=== PATIENT | male | born 1975 | race Caucasian/White ===

== ENCOUNTER 2019-08-01 16:45 | Inpatient (IN) | payer OTHER ==
[2019-08-01 19:00] VITALS: BMI 32.1
--- NOTE | 2019-08-01 20:41 | HP ---
COWS - Scale Resting Pulse: 1= [place] 81-100 Sweatin=Flushed/Facial Moisture Restless Observation: 1= Difficult to Sit Still Pupil Size: 1= Pupils >than Normal Bone or Joint Aches: 2= Severe Diffuse Aches Runny Nose/ Eye Tearin= Nasal Congestion GI Upset > 30mins: 2= Nausea/Diarrhea Tremor Observation: 1= Tremor [place], Not Seen Yawning Observation: 1= 1-2x During Session Anxiety or Irritability: 1=Feels Anxious/Irritable Goose Flesh Skin: 3=Piloerection COWS Score: 16 CIWA Score Nausea/Vomitin Muscle Tremors: 2 Anxiety: 2 Agitation: 1-Slight > Activity Paroxysmal Sweats: 1-Minimal Palms Moist Orientation: 0-Oriented Tacttile Disturbances: 2-Mild Itch/Numbness/Burn Auditory Disturbances: 1-Very Mild Visual Disturbances: 1-Very Mild Sensitivity Headache: 2-Mild CIWA-Ar Total Score: 14 - Admission Criteria OASAS Guidelines: Admission for Medically Managed Detox: Requires at least one of the followin. CIWA greater than 12 2. Seizures within the past 24 hours 3. Delirium tremens within the past 24 hours 4. Hallucinations within the past 24 hours 5. Acute intervention needed for co occurring medical disorder 6. Acute intervention needed for co occurring psychiatric disorder 7. Severe withdrawal that cannot be handled at a lower level of care (continued vomiting, continued diarrhea, abnormal vital signs) requiring intravenous medication and/or fluids 8. Admission [facility] Chief Complaint: Withdrawal symptoms Allergies/Adverse Reactions: Allergies Allergy/AdvReac Type Severity Reaction Status Date / Time No Known Allergies Allergy Verified 08/01/19 18:53 History of Present Illness: 44 y.o. man with extensive history of heroin and Xanax dependence is here for detox admission. He reports he completed detox at [facility] and states he was treated with Suboxone Exam Limitations: No Limitations - Ebola screening Have you traveled outside of the country in the last 21 days: No (N) Have you had contact with anyone from an Ebola affected area: No Do you have a fever: No - Review of Systems Constitutional: Chills, Diaphoresis, Loss of Appetite, Night Sweats, Unintentional Wgt. Loss EENT: reports: Tearing, Nose Congestion Respiratory: reports: Cough, Shortness of Breath Cardiac: reports: No Symptoms Reported GI: reports: Nausea, Vomiting : reports: No Symptoms Reported Musculoskeletal: reports: Back Pain, Joint Pain, Muscle Weakness Integumentary: reports: No Symptoms Reported Neuro: reports: Headache, Tremors Endocrine: reports: No Symptoms Reported Hematology: reports: No Symptoms Reported Psychiatric: reports: Anxious, Depressed Other Systems: Reviewed and Negative Patient History - Patient Medical History Hx Anemia: No Hx Asthma: No Hx Chronic Obstructive Pulmonary Disease (COPD): No Hx Cancer: No Hx Cardiac Disorders: No Hx Congestive Heart Failure: No Hx Hypertension: No Hx Hypercholesterolemia: No Hx Pacemaker: No HX Cerebrovascular Accident: No Hx Seizures: No Hx Dementia: No Hx Diabetes: No Hx Gastrointestinal Disorders: Yes (GERD ) Hx Liver Disease: No Hx Genitourinary Disorders: No Hx Sexually Transmitted Disorders: No Hx Renal Disease (ESRD): No Hx Thyroid Disease: No Hx Human Immunodeficiency Virus (HIV): No Hx Hepatitis C: No Hx Depression: Yes Hx Suicide Attempt: No Hx Bipolar Disorder: No Hx Schizophrenia: No - Patient Surgical History Past Surgical History: Yes Hx Orthopedic Surgery: Yes (Right foot fx repapir ) Anesthesia Reaction: Yes - PPD History Previous Implant?: Yes Documented Results: Negative w/o proof PPD to be Administered?: Yes - Reproductive History Patient is a Female of Child Bearing Age (11 -55 yrs old): No - Smoking Cessation Smoking history: Current every day smoker Have you smoked in the past 12 months: Yes Aproximately how many cigarettes per day: 10 Initiated information on smoking cessation: Yes 'Breaking Loose' booklet given: 08/01/19 - Substance & Tx. History Hx Alcohol Use: No Hx Substance Use: Yes Substance Use Type: Heroin, Tranquilizers Hx Substance Use Treatment: Yes (Detox "a few years ago". ) - Substances abused Alcohol Substance route: Oral Frequency: Daily Amount used: 1pint of whisky,(3)24oz of beer Age of first use: 17 Date of last use: 07/31/19 Heroin Substance route: Inhalation Frequency: Daily Amount used: 50-70bags/day Age of first use: 28 Date of last use: 07/31/19 Alprazolam (Xanax) Substance route: Oral Frequency: 3-6 times per week Amount used: 1gram Age of first use: 27 Date of last use: 07/31/19 Family Disease History - Family Disease History Family Disease History: Diabetes: Mother, Other: Father (Alcohol abuse ) Admission Physical Exam [facility] - Vital Signs Vital Signs: Vital Signs - 24 hr 08/01/19 18:54 Temperature 98.0 F Pulse Rate 88 Respiratory 18 Rate Blood Pressure 159/102 H - Physical General Appearance: Yes: Tremorous, Irritable, Sweating, Anxious HEENTM: Yes: Hearing grossly Normal, Normocephalic, Normal Voice Respiratory: Yes: Lungs Clear, Normal Breath Sounds, No Respiratory Distress, No Accessory Muscle Use Breast: Yes: Breast Exam Deferred Cardiology: Yes: Regular Rhythm, Regular Rate Abdominal: Yes: Non Tender, Flat Genitourinary: Yes: Within Normal Limits (No complaints reported) Back: Yes: Normal Inspection Musculoskeletal: Yes: full range of Motion, Gait Steady, Pelvis Stable Extremities: Yes: Normal Inspection, Normal Range of Motion, Non-Tender Neurological: Yes: Alert, Normal Mood/Affect, Normal Response Integumentary: Yes: Normal Color, Dry, Warm Lymphatic: Yes: Within Normal Limits - Diagnostic (1) Uncomplicated opioid dependence Current Visit: Yes Status: Acute (2) Xanax use disorder, moderate, dependence Current Visit: Yes Status: Acute (3) Alcohol dependence with uncomplicated intoxication Current Visit: Yes Status: Acute (4) Nicotine dependence Current Visit: Yes Status: Acute (5) GERD (gastroesophageal reflux disease) Current Visit: Yes Status: Acute Cleared for Admission [facility] - Detox or Rehab [facility] Level of Care: Medically Managed Detox Regimen/Protocol: Methadone/Valium Breathalyzer - Breathalyzer Breathalyzer: 0 Urine Drug Screen - Test Device Lot number: [id number] Expiration date: 04/15/21 - Control Is test valid?: Yes - Results Drug screen NEGATIVE: No Urine drug screen results: FEN-Fentanyl, MOP-Opiates Inpatient Rehab Admission - Rehab Decision to Admit Inpatient rehab admission?: No
[2019-08-01] MEDS ORDERED: ONDANSETRON *ODT* 4 MG TABLET SL PRN (20:56)
[2019-08-01] MEDS ORDERED: diazePAM 5 MG TABLET PO ONE (20:56)
[2019-08-01] MEDS ORDERED: MAGNESIUM CITRATE 300 ML BOTTLE PO PRN (20:56)
[2019-08-01] MEDS ORDERED: NICOTINE POLACRILEX 2 MG GUM BUC PRN (20:56)
[2019-08-01] MEDS ORDERED: ACETAMINOPHEN 325 MG TABLET (FP) PO PRN ×2 (20:56)
[2019-08-01] MEDS ORDERED: MENTHOL/PHENOL 1 EACH UD MM PRN (20:56)
[2019-08-01] MEDS ORDERED: MAGNESIUM HYDROX 2400MG/30ML ORAL SUSPENSION 30 ML CUP PO PRN (20:56)
[2019-08-01] MEDS ORDERED: METHADONE HCL 10 MG TABLET (FOR DETOX USE ONLY) PO ONE (20:56)
[2019-08-01] MEDS ORDERED: BISMUTH SUBSALICYLATE 524 MG/30 ML UD PO PRN (20:56)
[2019-08-01] MEDS ORDERED: IBUPROFEN 400 MG TABLET (FP) PO PRN (20:56)
[2019-08-01] MEDS ORDERED: MAG HYDROX/AL HYDROX/SIMETH 30 ML UNIT-DOSE CUP PO PRN (20:56)
[2019-08-01] MEDS: MELATONIN 5 MG TABLETS PO PRN (22:11)
[2019-08-01] MEDS: THIAMINE HCL 100 MG TABLET (FP) PO SCH (22:11)
[2019-08-01] MEDS: METHOCARBAMOL 500 MG TABLET PO PRN (22:11)
[2019-08-01] MEDS: cloNIDine HCL 0.1 MG TABLET PO PRN (22:14)
[2019-08-01] MEDS: diazePAM 5 MG TABLET PO SCH (22:21)
[2019-08-02] MEDS: IBUPROFEN 400 MG TABLET (FP) PO PRN ×2 (06:00→06:30)
[2019-08-02] MEDS: diazePAM 5 MG TABLET PO SCH ×3 (06:28→22:00)
[2019-08-02] MEDS ORDERED: METHADONE HCL 10 MG TABLET (FOR DETOX USE ONLY) ONE (08:09)
[2019-08-02] MEDS ORDERED: METHADONE HCL 5 MG TABLET (FOR DETOX USE ONLY) ONE (08:10)
[2019-08-02 09:56] LABS: HEMATOCRIT 39.6 % (35.4-49); HEMOGLOBIN 13.5 GM/dL (11.7-16.9); MCHC 34.2 g/dl (32.0-35.9); MEAN CELL VOLUME 87.7 fl (80-96); MEAN PLT VOLUME 7.7 fl (7.5-11.1); PLATELET COUNT 236 K/MM3 (134-434); RBC 4.52 M/mm3 (4.00-5.60); RDW 13.9 % (11.9-15.9); WHITE BLOOD COUNT 7.1 K/mm3 (4.0-10.0)
[2019-08-02] MEDS ORDERED: METHADONE (DETOX) 20 MG, METHADONE (DETOX) 5 MG PO ONE (10:00)
--- NOTE | 2019-08-02 10:12 | EKG ---
Test Reason : Blood Pressure : / mmHG Vent. Rate : 080 BPM Atrial Rate : 080 BPM P-R Int : 154 ms QRS Dur : 092 ms QT Int : 374 ms P-R-T Axes : 042 041 031 degrees QTc Int : 431 ms NORMAL SINUS RHYTHM NORMAL ECG NO PREVIOUS ECGS AVAILABLE Confirmed by MD Gamal, Samuel ([id number]) on 08/02/2019 10:12:28 AM Referred By: Confirmed By:Samuel Yeung MD
[2019-08-02 10:14] LABS: BLOOD UREA NITROGEN 11.8 mg/dL (7-18); CALCIUM 9.4 mg/dL (8.5-10.1); CREATININE 1.1 mg/dL (0.55-1.3); POTASSIUM 3.4 mmol/L (3.5-5.1); TOT PROT 7.2 g/dl (6.4-8.2)
[2019-08-02] MEDS: PRENATAL VITAMINS W/ FOLIC ACID TABLET (FP) PO SCH (10:35)
[2019-08-02] MEDS: NICOTINE 14 MG/24 HOURS TOPICAL PATCH TD SCH (10:35)
[2019-08-02] MEDS: RANITIDINE HCL 150 MG TABLET (FP) PO SCH (10:35)
[2019-08-02] MEDS: cloNIDine HCL 0.1 MG TABLET PO PRN (10:41)
[2019-08-02] MEDS: diazePAM 5 MG TABLET PO PRN (10:41)
[2019-08-02] MEDS: METHOCARBAMOL 500 MG TABLET PO PRN ×2 (10:42→22:01)
--- NOTE | 2019-08-02 11:21 | PN ---
S CIWA - CIWA Score Nausea/Vomitin Muscle Tremors: 2 Anxiety: 2 Agitation: 2 Paroxysmal Sweats: 1-Minimal Palms Moist Orientation: 0-Oriented Tacttile Disturbances: 1-Very Mild Itch/Numbness Auditory Disturbances: 0-None Visual Disturbances: 0-None Headache: 2-Mild CIWA-Ar Total Score: 12 BHS COWS - Scale Resting Pulse: 0= [place] 80 or Below Sweatin= No chills or Flushing Restless Observation: 1= Difficult to Sit Still Pupil Size: 1= Pupils >than Normal Bone or Joint Aches: 2= Severe Diffuse Aches Runny Nose/ Eye Tearin= Runny Nose/Eyes GI Upset > 30mins: 1= Stomach Cramp Tremor Observation of Outstretched Hands: 2= Slight Tremor Visible Yawning Observation: 1= 1-2x During Session Anxiety or Irritability: 2=Irritable/Anxious Goose Flesh Skin: 0=Smooth Skin COWS Score: 12 S Progress Note (SOAP) Subjective: alert,irritable,anxious,tremor,pain in the body and back Objective: 08/02/19 11:18 Vital Signs Temperature 97.8 F 08/02/19 09:16 Pulse Rate 67 08/02/19 09:16 Respiratory Rate 18 08/02/19 09:16 Blood Pressure 119/75 08/02/19 09:16 O2 Sat by Pulse Oximetry (%) Laboratory Last Values WBC 7.1 K/mm3 (4.0-10.0) 08/02/19 08:00 RBC 4.52 M/mm3 (4.00-5.60) 08/02/19 08:00 Hgb 13.5 GM/dL (11.7-16.9) 08/02/19 08:00 Hct 39.6 % (35.4-49) 08/02/19 08:00 MCV 87.7 fl (80-96) 08/02/19 08:00 MCH 30.0 pg (25.7-33.7) 08/02/19 08:00 MCHC 34.2 g/dl (32.0-35.9) 08/02/19 08:00 RDW 13.9 % (11.9-15.9) 08/02/19 08:00 Plt Count 236 K/MM3 (134-434) 08/02/19 08:00 MPV 7.7 fl (7.5-11.1) 08/02/19 08:00 Sodium 140 mmol/L (136-145) 08/02/19 08:00 Potassium 3.4 mmol/L (3.5-5.1) L 08/02/19 08:00 Chloride 104 mmol/L (98-107) 08/02/19 08:00 Carbon Dioxide 28 mmol/L (21-32) 08/02/19 08:00 Anion Gap 8 MMOL/L (8-16) 08/02/19 08:00 BUN 11.8 mg/dL (7-18) 08/02/19 08:00 Creatinine 1.1 mg/dL (0.55-1.3) 08/02/19 08:00 Est GFR (CKD-EPI)AfAm 95.46 08/02/19 08:00 Est GFR (CKD-EPI)NonAf 82.36 08/02/19 08:00 Random Glucose 112 mg/dL (74-106) H 08/02/19 08:00 Calcium 9.4 mg/dL (8.5-10.1) 08/02/19 08:00 Total Bilirubin 2.0 mg/dL (0.2-1) H 08/02/19 08:00 AST 16 U/L (15-37) 08/02/19 08:00 ALT 30 U/L (13-61) 08/02/19 08:00 Alkaline Phosphatase 62 U/L (45-117) 08/02/19 08:00 Total Protein 7.2 g/dl (6.4-8.2) 08/02/19 08:00 Albumin 4.0 g/dl (3.4-5.0) 08/02/19 08:00 Assessment: 08/02/19 11:19 withdrawal symptom Plan: continue detox methadone and valium regimen,glucose 112,k 3.4,bilirubin 2.0,k dur replacement,fasting glucose in am, repeat cmp in am
[2019-08-02] MEDS ORDERED: PNEUMOC 13-VAL CONJ-DIP CRM/PF 0.5 ML DISP.SYRIN IM ONE (12:00)
[2019-08-02] MEDS ORDERED: POTASSIUM CHLORIDE TABS 20 MEQ TABLET.ER (FP) PO ONE (13:00)
--- NOTE | 2019-08-02 18:22 | CONSULT ---
[facility] Psychiatric Consult - Data Date of interview: 08/02/19 Admission source: [facility] Identifying data: Approached at bedside for psychiatric interview. Found asleep.
[2019-08-02] MEDS: MELATONIN 5 MG TABLETS PO PRN (22:01)
[2019-08-02] MEDS: THIAMINE HCL 100 MG TABLET (FP) PO SCH (22:01)
[2019-08-02] MEDS: QUEtiapine FUMARATE 50 MG TABLET PO PRN (22:01)
[2019-08-03] MEDS: diazePAM 5 MG TABLET PO SCH ×2 (06:02→17:00)
[2019-08-03] MEDS: IBUPROFEN 400 MG TABLET (FP) PO PRN ×2 (06:06→17:00)
[2019-08-03] MEDS: METHOCARBAMOL 500 MG TABLET PO PRN ×2 (06:07→22:03)
[2019-08-03] MEDS ORDERED: METHADONE HCL 10 MG TABLET (FOR DETOX USE ONLY) PO ONE (10:00)
[2019-08-03 10:02] LABS: BILIRUBIN,TOTAL 2.2 mg/dL (0.2-1); BLOOD UREA NITROGEN 8.6 mg/dL (7-18); CALCIUM 9.5 mg/dL (8.5-10.1); POTASSIUM 3.7 mmol/L (3.5-5.1); TOT PROT 7.2 g/dl (6.4-8.2)
[2019-08-03] MEDS: diazePAM 5 MG TABLET PO PRN ×2 (10:29→20:38)
[2019-08-03] MEDS: NICOTINE 14 MG/24 HOURS TOPICAL PATCH TD SCH (10:29)
[2019-08-03] MEDS: POTASSIUM CHLORIDE TABS 20 MEQ TABLET.ER (FP) PO SCH (10:29)
[2019-08-03] MEDS: PRENATAL VITAMINS W/ FOLIC ACID TABLET (FP) PO SCH (10:29)
[2019-08-03] MEDS: RANITIDINE HCL 150 MG TABLET (FP) PO SCH (10:29)
[2019-08-03] MEDS: cloNIDine HCL 0.1 MG TABLET PO PRN (10:32)
--- NOTE | 2019-08-03 13:17 | PN ---
[facility] CIWA - CIWA Score Nausea/Vomitin-Mild Nausea/No Vomiting Muscle Tremors: 3 Anxiety: 2 Agitation: 2 Paroxysmal Sweats: 1-Minimal Palms Moist Orientation: 0-Oriented Tacttile Disturbances: 0-None Auditory Disturbances: 0-None Visual Disturbances: 0-None Headache: 0-None Present CIWA-Ar Total Score: 9 BHS COWS - Scale Resting Pulse: 0= [place] 80 or Below Sweatin= Chills/Flushing Restless Observation: 0= Sits Still Pupil Size: 0= Normal to Room Light Bone or Joint Aches: 1= Mild Discomfort Runny Nose/ Eye Tearin= Nasal Congestion GI Upset > 30mins: 1= Stomach Cramp Tremor Observation of Outstretched Hands: 2= Slight Tremor Visible Yawning Observation: 1= 1-2x During Session Anxiety or Irritability: 2=Irritable/Anxious Goose Flesh Skin: 0=Smooth Skin COWS Score: 9 [facility] Progress Note (SOAP) Subjective: doing well with valium and methadone detox regimen feeling tired resting on bed limited conversation with staff Objective: 08/03/19 13:16 Vital Signs Temperature 98.7 F 08/03/19 13:10 Pulse Rate 76 08/03/19 13:10 Respiratory Rate 18 08/03/19 13:10 Blood Pressure 102/60 08/03/19 13:10 O2 Sat by Pulse Oximetry (%) Laboratory Last Values WBC 7.1 K/mm3 (4.0-10.0) 08/02/19 08:00 RBC 4.52 M/mm3 (4.00-5.60) 08/02/19 08:00 Hgb 13.5 GM/dL (11.7-16.9) 08/02/19 08:00 Hct 39.6 % (35.4-49) 08/02/19 08:00 MCV 87.7 fl (80-96) 08/02/19 08:00 MCH 30.0 pg (25.7-33.7) 08/02/19 08:00 MCHC 34.2 g/dl (32.0-35.9) 08/02/19 08:00 RDW 13.9 % (11.9-15.9) 08/02/19 08:00 Plt Count 236 K/MM3 (134-434) 08/02/19 08:00 MPV 7.7 fl (7.5-11.1) 08/02/19 08:00 Sodium 141 mmol/L (136-145) 08/03/19 08:20 Potassium 3.7 mmol/L (3.5-5.1) 08/03/19 08:20 Chloride 104 mmol/L (98-107) 08/03/19 08:20 Carbon Dioxide 31 mmol/L (21-32) 08/03/19 08:20 Anion Gap 5 MMOL/L (8-16) L 08/03/19 08:20 BUN 8.6 mg/dL (7-18) 08/03/19 08:20 Creatinine 1.0 mg/dL (0.55-1.3) 08/03/19 08:20 Est GFR (CKD-EPI)AfAm 107.12 08/03/19 08:20 Est GFR (CKD-EPI)NonAf 92.42 08/03/19 08:20 Random Glucose 104 mg/dL (74-106) 08/03/19 08:20 Fasting Glucose 104 mg/dL (74-106) 08/03/19 08:20 Calcium 9.5 mg/dL (8.5-10.1) 08/03/19 08:20 Total Bilirubin 2.2 mg/dL (0.2-1) H 08/03/19 08:20 AST 14 U/L (15-37) L 08/03/19 08:20 ALT 31 U/L (13-61) 08/03/19 08:20 Alkaline Phosphatase 66 U/L (45-117) 08/03/19 08:20 Total Protein 7.2 g/dl (6.4-8.2) 08/03/19 08:20 Albumin 4.0 g/dl (3.4-5.0) 08/03/19 08:20 RPR Titer Nonreactive (NONREACTIVE) 08/02/19 08:00 lab noted Assessment: 08/03/19 13:16 alcohol and opiate withdrawal sx Plan: continue valium and methadone detox regimen
[2019-08-03] MEDS: hydrOXYzine PAMOATE 50 MG CAPSULE (FP) PO PRN ×2 (17:00→22:03)
[2019-08-03] MEDS: THIAMINE HCL 100 MG TABLET (FP) PO SCH (22:02)
[2019-08-03] MEDS: QUEtiapine FUMARATE 50 MG TABLET PO PRN (22:02)
[2019-08-04] MEDS ORDERED: diazePAM 5 MG TABLET PO ONE (06:00)
[2019-08-04] MEDS: IBUPROFEN 400 MG TABLET (FP) PO PRN ×2 (06:34→22:09)
[2019-08-04] MEDS ORDERED: METHADONE HCL 10 MG TABLET (FOR DETOX USE ONLY) ONE (09:42)
[2019-08-04] MEDS ORDERED: METHADONE HCL 5 MG TABLET (FOR DETOX USE ONLY) ONE (09:42)
[2019-08-04] MEDS ORDERED: METHADONE (DETOX) 10 MG, METHADONE (DETOX) 5 MG PO ONE (10:00)
[2019-08-04] MEDS: RANITIDINE HCL 150 MG TABLET (FP) PO SCH (10:24)
[2019-08-04] MEDS: POTASSIUM CHLORIDE TABS 20 MEQ TABLET.ER (FP) PO SCH (10:25)
[2019-08-04] MEDS: PRENATAL VITAMINS W/ FOLIC ACID TABLET (FP) PO SCH (10:25)
[2019-08-04] MEDS: NICOTINE 14 MG/24 HOURS TOPICAL PATCH TD SCH (10:26)
[2019-08-04] MEDS: diazePAM 5 MG TABLET PO PRN ×2 (10:28→18:00)
--- NOTE | 2019-08-04 10:31 | PN ---
S CIWA - CIWA Score Nausea/Vomitin-Mild Nausea/No Vomiting Muscle Tremors: 2 Anxiety: 2 Agitation: 1-Slight > Activity Paroxysmal Sweats: 2 Orientation: 0-Oriented Tacttile Disturbances: 0-None Auditory Disturbances: 0-None Visual Disturbances: 0-None Headache: 0-None Present CIWA-Ar Total Score: 8 BHS COWS - Scale Resting Pulse: 0= [place] 80 or Below Sweatin= Chills/Flushing Restless Observation: 0= Sits Still Pupil Size: 0= Normal to Room Light Bone or Joint Aches: 1= Mild Discomfort Runny Nose/ Eye Tearin= Nasal Congestion GI Upset > 30mins: 1= Stomach Cramp Tremor Observation of Outstretched Hands: 2= Slight Tremor Visible Yawning Observation: 1= 1-2x During Session Anxiety or Irritability: 1=Feels Anxious/Irritable Goose Flesh Skin: 0=Smooth Skin COWS Score: 8 BHS Progress Note (SOAP) Subjective: doing well with valium and methadone detox regimen c/o nausea zofran 8 mg sl x 1 now c/o muscle spasms robaxin 500 mg po x 1 now Objective: 08/04/19 10:31 Vital Signs Temperature 97.2 F L 08/04/19 09:25 Pulse Rate 76 08/04/19 09:25 Respiratory Rate 18 08/04/19 09:25 Blood Pressure 109/65 08/04/19 09:25 O2 Sat by Pulse Oximetry (%) Laboratory Last Values WBC 7.1 K/mm3 (4.0-10.0) 08/02/19 08:00 RBC 4.52 M/mm3 (4.00-5.60) 08/02/19 08:00 Hgb 13.5 GM/dL (11.7-16.9) 08/02/19 08:00 Hct 39.6 % (35.4-49) 08/02/19 08:00 MCV 87.7 fl (80-96) 08/02/19 08:00 MCH 30.0 pg (25.7-33.7) 08/02/19 08:00 MCHC 34.2 g/dl (32.0-35.9) 08/02/19 08:00 RDW 13.9 % (11.9-15.9) 08/02/19 08:00 Plt Count 236 K/MM3 (134-434) 08/02/19 08:00 MPV 7.7 fl (7.5-11.1) 08/02/19 08:00 Sodium 141 mmol/L (136-145) 08/03/19 08:20 Potassium 3.7 mmol/L (3.5-5.1) 08/03/19 08:20 Chloride 104 mmol/L (98-107) 08/03/19 08:20 Carbon Dioxide 31 mmol/L (21-32) 08/03/19 08:20 Anion Gap 5 MMOL/L (8-16) L 08/03/19 08:20 BUN 8.6 mg/dL (7-18) 08/03/19 08:20 Creatinine 1.0 mg/dL (0.55-1.3) 08/03/19 08:20 Est GFR (CKD-EPI)AfAm 107.12 08/03/19 08:20 Est GFR (CKD-EPI)NonAf 92.42 08/03/19 08:20 Random Glucose 104 mg/dL (74-106) 08/03/19 08:20 Fasting Glucose 104 mg/dL (74-106) 08/03/19 08:20 Calcium 9.5 mg/dL (8.5-10.1) 08/03/19 08:20 Total Bilirubin 2.2 mg/dL (0.2-1) H 08/03/19 08:20 AST 14 U/L (15-37) L 08/03/19 08:20 ALT 31 U/L (13-61) 08/03/19 08:20 Alkaline Phosphatase 66 U/L (45-117) 08/03/19 08:20 Total Protein 7.2 g/dl (6.4-8.2) 08/03/19 08:20 Albumin 4.0 g/dl (3.4-5.0) 08/03/19 08:20 RPR Titer Nonreactive (NONREACTIVE) 08/02/19 08:00 lab noted Assessment: 08/04/19 10:33 alcohol benzo opiate withdrawal sx Plan: continue valium and methadone detox regimen
[2019-08-04] MEDS ORDERED: ONDANSETRON *ODT* 4 MG TABLET SL ONE (11:00)
[2019-08-04] MEDS ORDERED: METHOCARBAMOL 500 MG TABLET PO ONE (11:00)
[2019-08-04] MEDS: THIAMINE HCL 100 MG TABLET (FP) PO SCH (22:08)
[2019-08-04] MEDS: MELATONIN 5 MG TABLETS PO PRN (22:09)
[2019-08-04] MEDS: METHOCARBAMOL 500 MG TABLET PO PRN (22:10)
[2019-08-05] MEDS: IBUPROFEN 400 MG TABLET (FP) PO PRN ×2 (07:23→13:48)
[2019-08-05] MEDS: hydrOXYzine PAMOATE 50 MG CAPSULE (FP) PO PRN ×2 (07:23→20:51)
[2019-08-05] MEDS ORDERED: METHADONE HCL 10 MG TABLET (FOR DETOX USE ONLY) PO ONE (10:00)
[2019-08-05] MEDS: RANITIDINE HCL 150 MG TABLET (FP) PO SCH (10:10)
[2019-08-05] MEDS: POTASSIUM CHLORIDE TABS 20 MEQ TABLET.ER (FP) PO SCH (10:11)
[2019-08-05] MEDS: PRENATAL VITAMINS W/ FOLIC ACID TABLET (FP) PO SCH (10:11)
[2019-08-05] MEDS: NICOTINE 14 MG/24 HOURS TOPICAL PATCH TD SCH (10:11)
[2019-08-05] MEDS: METHOCARBAMOL 500 MG TABLET PO PRN ×2 (13:44→21:59)
[2019-08-05] MEDS ORDERED: diazePAM 5 MG TABLET PO ONE (14:00)
--- NOTE | 2019-08-05 17:25 | PN ---
[facility] CIWA - CIWA Score Nausea/Vomitin Muscle Tremors: 3 Anxiety: 3 Agitation: 2 Paroxysmal Sweats: No Perspiration Orientation: 0-Oriented Tacttile Disturbances: 2-Mild Itch/Numbness/Burn Auditory Disturbances: 0-None Visual Disturbances: 0-None Headache: 0-None Present CIWA-Ar Total Score: 15 BHS COWS - Scale Resting Pulse: 0= [place] 80 or Below Sweatin= Chills/Flushing Restless Observation: 1= Difficult to Sit Still Pupil Size: 0= Normal to Room Light Bone or Joint Aches: 2= Severe Diffuse Aches Runny Nose/ Eye Tearin= None GI Upset > 30mins: 3= Vomiting/Diarrhea Tremor Observation of Outstretched Hands: 2= Slight Tremor Visible (Restless Legs.) Yawning Observation: 1= 1-2x During Session Anxiety or Irritability: 2=Irritable/Anxious Goose Flesh Skin: 0=Smooth Skin COWS Score: 12 S Progress Note (SOAP) Subjective: Anxious, Body Aches, Vomiting, Restless, Legs, Constipation. Objective: PATIENT A & O X 3, OBSERVED AMBULATING ON DETOX UNIT UNASSISTED. IN NO ACUTE DISTRESS. 08/05/19 17:22 Vital Signs Temperature 97.3 F L 08/05/19 14:59 Pulse Rate 73 08/05/19 14:59 Respiratory Rate 20 08/05/19 14:59 Blood Pressure 125/87 08/05/19 14:59 O2 Sat by Pulse Oximetry (%) Laboratory Tests 08/02/19 08/02/19 08/02/19 08:00 08:00 08:00 WBC 7.1 RBC 4.52 Hgb 13.5 Hct 39.6 MCV 87.7 MCH 30.0 MCHC 34.2 RDW 13.9 Plt Count 236 MPV 7.7 Sodium 140 Potassium 3.4 L Chloride 104 Carbon Dioxide 28 Anion Gap 8 BUN 11.8 Creatinine 1.1 Est GFR (CKD-EPI)AfAm 95.46 Est GFR (CKD-EPI)NonAf 82.36 Random Glucose 112 H Fasting Glucose Calcium 9.4 Total Bilirubin 2.0 H AST 16 ALT 30 Alkaline Phosphatase 62 Total Protein 7.2 Albumin 4.0 RPR Titer Nonreactive 08/03/19 08:20 WBC RBC Hgb Hct MCV MCH MCHC RDW Plt Count MPV Sodium 141 Potassium 3.7 Chloride 104 Carbon Dioxide 31 Anion Gap 5 L BUN 8.6 Creatinine 1.0 Est GFR (CKD-EPI)AfAm 107.12 Est GFR (CKD-EPI)NonAf 92.42 Random Glucose 104 Fasting Glucose 104 Calcium 9.5 Total Bilirubin 2.2 H AST 14 L ALT 31 Alkaline Phosphatase 66 Total Protein 7.2 Albumin 4.0 RPR Titer LABS NOTED. Assessment: 08/05/19 17:22 WITHDRAWAL SYMPTOMS. HYPERBILIRUBINEMIA. 08/05/19 17:24 Plan: CONTINUE DETOX. D/C K-DUR (PATIENT'S REPEAT K LEVEL RESULT WITHIN NORMAL RANGE). PATIENT SCHEDULED FOR D/C FROM DETOX UNIT TOMORROW.
[2019-08-05] MEDS: THIAMINE HCL 100 MG TABLET (FP) PO SCH (21:58)
[2019-08-05] MEDS: QUEtiapine FUMARATE 50 MG TABLET PO PRN (21:59)
[2019-08-05] MEDS: MELATONIN 5 MG TABLETS PO PRN (21:59)
[2019-08-06] MEDS ORDERED: METHADONE HCL 5 MG TABLET (FOR DETOX USE ONLY) PO ONE (06:00)
[2019-08-06 09:26] VITALS: BP 125/80; PULSE 80; TEMP 97
--- NOTE | 2019-08-06 18:26 | DS ---
[facility] Detox Discharge Summary Admission Date: 08/01/19 Discharge Date: 08/06/19 - History Present History: Alcohol Dependence, Opioid Dependence, Sedative Dependence Additional Comments: PATIENT RETURNING HOME AND TO WORK. PATIENT WILL ATTEND LOCAL 12-STEP / NA / AA OUTPATIENT SUPPORT GROUP MEETING FOR AFTERCARE. PATIENT ALSO REFERRED TO THE [facility] ([place], [place]) FOR AFTERCARE. PATIENT WAS DISCHARGED FORM DETOX UNIT IN STABLE MEDICAL CONDITION. Pertinent Past History: Depression, G.E.R.D., Hypokalemia (later resolved on Detox unit), Hyperbilirubinemia. - Physical Exam Results Vital Signs: Vital Signs Temperature 97.0 F L 08/06/19 09:25 Pulse Rate 80 08/06/19 09:25 Respiratory Rate 18 08/06/19 09:25 Blood Pressure 125/80 08/06/19 09:25 O2 Sat by Pulse Oximetry (%) Pertinent Admission Physical Exam Findings: WITHDRAWAL SYMPTOMS. Laboratory Tests 08/02/19 08/02/19 08/02/19 08:00 08:00 08:00 WBC 7.1 RBC 4.52 Hgb 13.5 Hct 39.6 MCV 87.7 MCH 30.0 MCHC 34.2 RDW 13.9 Plt Count 236 MPV 7.7 Sodium 140 Potassium 3.4 L Chloride 104 Carbon Dioxide 28 Anion Gap 8 BUN 11.8 Creatinine 1.1 Est GFR (CKD-EPI)AfAm 95.46 Est GFR (CKD-EPI)NonAf 82.36 Random Glucose 112 H Fasting Glucose Calcium 9.4 Total Bilirubin 2.0 H AST 16 ALT 30 Alkaline Phosphatase 62 Total Protein 7.2 Albumin 4.0 RPR Titer Nonreactive 08/03/19 08:20 WBC RBC Hgb Hct MCV MCH MCHC RDW Plt Count MPV Sodium 141 Potassium 3.7 Chloride 104 Carbon Dioxide 31 Anion Gap 5 L BUN 8.6 Creatinine 1.0 Est GFR (CKD-EPI)AfAm 107.12 Est GFR (CKD-EPI)NonAf 92.42 Random Glucose 104 Fasting Glucose 104 Calcium 9.5 Total Bilirubin 2.2 H AST 14 L ALT 31 Alkaline Phosphatase 66 Total Protein 7.2 Albumin 4.0 RPR Titer LABS NOTED. - Treatment Hospital Course: Detox Protocol Followed, Detoxed Safely, Responded well, Discharged Condition Good Patient has Accepted a Rehab Referral to: PT. REFERRED [facility] ([place], [place]) - Medication Discharge Medications: Ambulatory Orders NK [No Known Home Medication] 08/01/19 - Diagnosis (1) Alcohol dependence with uncomplicated intoxication Status: Acute (2) GERD (gastroesophageal reflux disease) Status: Acute Qualifiers: Esophagitis presence: esophagitis presence not specified Qualified Code(s) : K21.9 - Gastro-esophageal reflux disease without esophagitis (3) Hyperbilirubinemia Status: Acute (4) Nicotine dependence Status: Acute Qualifiers: Nicotine product type: cigarettes Substance use status: uncomplicated Qualified Code(s): F17.210 - Nicotine dependence, cigarettes, uncomplicated (5) Uncomplicated opioid dependence Status: Acute (6) Xanax use disorder, moderate, dependence Status: Acute - AMA Did Patient Leave Against Medical Advice: No S CIWA - CIWA Score Nausea/Vomitin-No Nausea/No Vomiting Muscle Tremors: None Anxiety: 3 Agitation: 2 Paroxysmal Sweats: No Perspiration Orientation: 0-Oriented Tacttile Disturbances: 0-None Auditory Disturbances: 0-None Visual Disturbances: 0-None Headache: 0-None Present CIWA-Ar Total Score: 5 S COWS - Scale Resting Pulse: 0= [place] 80 or Below Sweatin= No chills or Flushing Restless Observation: 1= Difficult to Sit Still Pupil Size: 0= Normal to Room Light Bone or Joint Aches: 0= None Runny Nose/ Eye Tearin= None GI Upset > 30mins: 0= None Tremor Observation of Outstretched Hands: 0= None Yawning Observation: 0= None Anxiety or Irritability: 2=Irritable/Anxious Goose Flesh Skin: 0=Smooth Skin COWS Score: 3
== END 2019-08-06 10:45 | disposition home or self-care (01) | DRG 773 ==
LOC: YASAS 16:45 → Y3N 20:51
PROVIDERS: ADMIT Surgery; ATTEND Surgery
PROC: HZ2ZZZZ Detoxification Services for Substance Abuse Treatment (ICD-10-PCS; principal; 2019-08-01)
DX: F10.230 Alcohol dependence with withdrawal, uncomplicated (principal); F11.23 Opioid dependence with withdrawal; F13.230 Sedative, hypnotic or anxiolytic dependence with withdrawal, uncomplicated; F17.210 Nicotine dependence, cigarettes, uncomplicated; E80.6 Other disorders of bilirubin metabolism; K21.9 Gastro-esophageal reflux disease without esophagitis
CPT/HCPCS: 36415; 80053; 82947; 85027; 86593; 90670; 93005; 93010; J0735; Q0162